=== PATIENT | male | born 1970 | race Caucasian/White ===

== ENCOUNTER 2018-05-03 22:00 | Inpatient (IN) ==
--- NOTE | 2018-05-03 22:40 | ED ---
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 Patient underwent resection of the brain mass. Patient had a new mass noted on MRI back in September 2017. He is currently on chemotherapy and radiation therapy. His last radiation therapy was 12/06/17. Patient also has a history of hypertension, seizure, GERD. The patient presents under Jose act by PD. According to the Jose act the patient had wrapped a cord around his neck. The patient denies this. He states that he was playing with a elastic cord and never put it around his neck. He states that if he wanted to kill himself he would have already done it. He denies any suicidal or homicidal ideation. The patient does complain of intermittent headache as well as problems concentrating and thinking. He denies any fever chills. No chest pain or shortness of breath. No nausea or vomiting. No abdominal pain or urine symptoms. Patient denies alcohol tobacco. No drugs. Past medical history: Astrocytoma, hypertension, seizure disorder, GERD Surgical history: Craniotomy with excision of brain mass Social history: Denies tobacco. Denies alcohol. Denies drugs. Related Data Home Medications Medication Instructions Recorded Confirmed dexamethasone 4 mg PO BID 05/03/18 05/03/18 divalproex [Depakote] 1,000 mg PO DAILY 05/03/18 05/03/18 divalproex [Depakote] 500 mg PO HS 05/03/18 05/03/18 omeprazole 40 mg PO DAILY 05/03/18 05/03/18 phenytoin sodium extended 200 mg PO HS 05/03/18 05/03/18 [Dilantin] phenytoin sodium extended 400 mg PO DAILY 05/03/18 05/03/18 [Dilantin] sulfamethoxazole-trimethoprim 80 PO DAILY 05/03/18 [Bactrim] Allergies Allergy/AdvReac Type Severity Reaction Status Date / Time No Known Allergies Allergy Uncoded 10/23/16 09:19 Review of Systems ROS: all other systems reviewed are negative PMFSH History History Provided By: Patient Social History Social History Recent Travel in [place] within the Last 8 Weeks: No Recent Out of Country Travel within the Last 8 Weeks: No Exam Narrative Exam Narrative: GENERAL: Well-nourished, well-developed patient. SKIN: Warm and dry. HEAD: Normocephalic and atraumatic. Evidence of right craniotomy. EYES: No scleral icterus. No injection or drainage. ENT: No nasal drainage noted. Mucous membranes pink. Airway patent. NECK: Supple, trachea midline. Moves head freely without obvious discomfort. CARDIOVASCULAR: Regular rate and rhythm without murmurs, gallops, or rubs. RESPIRATORY: Breath sounds equal bilaterally. No accessory muscle use. GASTROINTESTINAL: Abdomen soft, non-tender, nondistended. EXTREMITIES: No cyanosis or edema. BACK: Nontender without obvious deformity. No CVA tenderness. NEURO: Patient is alert and oriented. no sensorimotor deficits. Nonfocal. Normal speech. Patient's speech is slow but intact. He does appear to have problems concentrating at times. PSYCH: No delusions. No auditory or visual hallucinations. Course Initial Documented Vital Signs Temperature 98.2 F 05/03/18 22:10 Respiratory Rate 16 05/03/18 22:10 Blood Pressure 124/93 H 05/03/18 22:10 Pulse Oximetry 98 05/03/18 22:10 Last Documented Vital Signs Temperature 98.2 F 05/03/18 22:10 Respiratory Rate 16 05/03/18 22:10 Blood Pressure 124/93 H 05/03/18 22:10 Pulse Oximetry 98 05/03/18 22:10 Medical Decision Making MDM Narrative Medical decision making narrative: We will perform routine laboratory tests for medical clearance as well as CT scan of the brain. Patient was recently seen by medical oncology on 03/28/18. Patient's primary care doctor Maura Bansal MD and medical oncologist is Tiffanie Bhakta MD. The patient has been medically cleared. Medical Screen Exam Complete: Yes Emergency Medical Condition: Yes Differential Diagnosis Differential Diagnosis: MDM: High Differential diagnoses: Schizophrenia, schizoaffective disorder, bipolar, anxiety, depression, adjustment reaction, mood disorder NOS, ODD, depressive disorder NOS, dementia, dementia with agitation, psychosis NOS, substance induced mood disorder, DMDD, Asperger syndrome, infection,electrolyte abnormality, malingering. Mental health screening discussed with the patient. Psychiatric screen ordered. Lab Data Result diagrams: 05/03/18 22:26 05/03/18 22:26 Lab Results 05/03/18 05/03/18 Range/Units 22:26 22:26 WBC 5.2 (4.0-11.0) th/mm3 RBC 4.72 (4.50-5.90) mil/mm3 Hgb 15.2 (13.0-17.0) gm/dL Hct 43.3 (39.0-51.0) % MCV 91.6 (80.0-100.0) fL MCH 32.1 (27.0-34.0) pg MCHC 35.0 (32.0-36.0) % RDW 12.6 (11.6-17.2) % Plt Count 236 (150-450) th/mm3 MPV 6.7 L (7.0-11.0) fL Neut % (Auto) 50.3 (16.0-70.0) % Lymph % (Auto) 34.8 (9.0-44.0) % Noble % (Auto) 12.2 H (0.0-8.0) % Eos % (Auto) 2.0 (0.0-4.0) % Baso % (Auto) 0.7 (0.0-2.0) % Neut # (Auto) 2.6 (1.8-7.7) th/mm3 Lymph # (Auto) 1.8 (1.0-4.8) th/mm3 Noble # (Auto) 0.6 (0.0-0.9) th/mm3 Eos # (Auto) 0.1 (0.0-0.4) th/mm3 Baso # (Auto) 0.0 (0.0-0.2) th/mm3 WBC Differential . Differential Comment Auto diff final Sodium 144 (136-145) meq/L Potassium 3.8 (3.5-5.1) meq/L Chloride 110 H (98-107) meq/L Carbon Dioxide 25.9 (21.0-32.0) meq/L Anion Gap 8 (5-15) meq/L BUN 8 (7-18) mg/dL Creatinine 0.81 (0.60-1.30) mg/dL Estimated GFR Greater than 89 (>89) mL/min Random Glucose 95 (74-106) mg/dL Calcium 8.5 (8.5-10.1) mg/dL Total Bilirubin 0.2 (0.2-1.0) mg/dL AST 13 L (15-37) U/L ALT 30 (12-78) U/L Alkaline Phosphatase 51 (45-117) U/L Total Protein 7.1 (6.4-8.2) g/dL Albumin 3.8 (3.4-5.0) g/dL TSH 2.600 (0.358-3.740) uIU/mL Phenytoin 11.7 (10.0-20.0) mcg/mL Valproic Acid 73 (50-100) mcg/mL Serum Alcohol Less than 3 (0-5) mg/dL Imaging Data Radiologist's impression: Head CT 05/03/18 22:33 CONCLUSION: Low density seen throughout the right temporal lobe and extending to the right parietal lobe. The patient is status post right temporal craniotomy. Significant mass effect or hemorrhage is not seen. This area was better evaluated on a prior recent MRI examination. . Discharge Plan Discharge Disposition Patient Disposition: 30 Still Patient Discharge Condition Condition: Stable Physicians Team ED Provider: Joe Root ED Midlevel Provider: Martinze Dunham Primary Care Provider: Maura Bansal Rxs /Orders / Referrals /Forms Prescriptions: No Action divalproex [Depakote] 500 mg Tablet,Delayed Release (Dr/Ec) 500 mg PO HS RF: 0 divalproex [Depakote] 500 mg Tablet,Delayed Release (Dr/Ec) 1,000 mg PO DAILY RF: 0 dexamethasone 4 mg Tablet 4 mg PO BID RF: 0 phenytoin sodium extended [Dilantin] 30 mg Capsule 200 mg PO HS RF: 0 phenytoin sodium extended [Dilantin] 30 mg Capsule 400 mg PO DAILY RF: 0 sulfamethoxazole-trimethoprim [Bactrim] 400-80 mg Tablet 80 PO DAILY RF: 0 omeprazole 40 mg Capsule,Delayed Release(Dr/Ec) 40 mg PO DAILY RF: 0 Status ED Status: Medically Cleared
--- NOTE | 2018-05-03 22:55 | CT ---
EXAM DATE: 05/03/2018 10:37 PM EDT AGE/SEX: 47 years / Male INDICATIONS: Attempted hanging. CLINICAL DATA: This is the patient's initial encounter. Patient reports that signs and symptoms have been present for 1 day and indicates a pain score of 0/10. MEDICAL/SURGICAL HISTORY: . prior brain tumor Craniotomy. RADIATION DOSE: 56.35 CTDI (mGy) COMPARISON: POI, MR BRAIN W AND W/O CONTRAST, 04/21/2018. . TECHNIQUE: CT of the head without contrast. Using automated exposure control and adjustment of the mA and/or kV according to patient size, radiation dose was kept as low as reasonably achievable to ob tain optimal diagnostic quality images. DICOM format image data is available electronically for revi ew and comparison. FINDINGS: Cerebrum: There is to be low density seen throughout the right temporal lobe and extending into the right parietal lobe. The patient is status post craniotomy in the right temporal region. The low-dens ity in the right parietal lobe primarily involves the white matter is likely related to edema. The ve ntricles are normal for age. No evidence of midline shift, hemorrhage or acute infarction. No extra axial fluid collections are seen. Posterior Fossa: The cerebellum and brainstem are intact. The 4th ventricle is midline. The cerebe llopontine angle is unremarkable. Extracranial: The visualized portion of the orbits is intact. Skull: The patient is status post right temporal craniotomy. CONCLUSION: Low density seen throughout the right temporal lobe and extending to the right parietal lobe. The pat ient is status post right temporal craniotomy. Significant mass effect or hemorrhage is not seen. Thi s area was better evaluated on a prior recent MRI examination. . Electronically signed by: Mir Townsend MD 05/03/2018 10:54 PM EDT
[2018-05-03 23:16] LABS: Baso % (Auto) 0.7 % (0.0-2.0); Eos # (Auto) 0.1 th/mm3 (0.0-0.4); Hematocrit 43.3 % (39.0-51.0); Hemoglobin 15.2 gm/dL (13.0-17.0); Lymph # (Auto) 1.8 th/mm3 (1.0-4.8); Lymph % (Auto) 34.8 % (9.0-44.0); Mean Corpuscular Hemoglobin 32.1 pg (27.0-34.0); Mean Corpuscular Volume 91.6 fL (80.0-100.0); Mean Platelet Volume 6.7 fL (7.0-11.0); Mono # (Auto) 0.6 th/mm3 (0.0-0.9); Mono % (Auto) 12.2 % (0.0-8.0); Neut # (Auto) 2.6 th/mm3 (1.8-7.7); Neut % (Auto) 50.3 % (16.0-70.0); Platelet Count 236 th/mm3 (150-450); Red Blood Count 4.72 mil/mm3 (4.50-5.90); Red Cell Distribution Width 12.6 % (11.6-17.2); White Blood Count 5.2 th/mm3 (4.0-11.0)
[2018-05-03 23:33] LABS: Alanine Aminotransferase 30 U/L (12-78); Albumin 3.8 g/dL (3.4-5.0); Anion Gap 8 meq/L (5-15); Aspartate Aminotransferase 13 U/L (15-37); Blood Urea Nitrogen 8 mg/dL (7-18); Calcium 8.5 mg/dL (8.5-10.1); Carbon Dioxide 25.9 meq/L (21.0-32.0); Chloride 110 meq/L (98-107); Glomerular Filtration Rate Greater Than 89 mL/min (>89); Glucose,Random 95 mg/dL (74-106); Potassium 3.8 meq/L (3.5-5.1); Sodium 144 meq/L (136-145)
[2018-05-03 23:42] LABS: Alkaline Phosphatase 51 U/L (45-117); Phenytoin (Dilantin) 11.7 mcg/mL (10.0-20.0); Total Protein 7.1 g/dL (6.4-8.2); Valproic Acid 73 mcg/mL (50-100)
[2018-05-04 00:52] LABS: Amphetamine Screen,Urine Neg (Neg); Barbiturate Screen,Urine Neg (Neg); Cannabinoid Screen,Urine Neg (Neg); Cocaine Screen,Urine Neg (Neg)
[2018-05-04 01:00] LABS: Opiate Screen,Urine Neg (Neg)
[2018-05-04 02:16] VITALS: RESP 18
--- NOTE | 2018-05-04 10:44 | ED ---
HPI - Psych - General Source: patient, family, police Mode of arrival: ambulatory Limitations: no limitations - History of Present Illness complaint: suicidal ideation Onset (ago): week(s) Duration: constant History of same: No Relieving factors: none Exacerbating factors: medication, other (Major medical issues) Context: new medication(s), significant life stressor Associated symptoms: denies other symptoms Treatments prior to arrival: none If self harm: other (Continues to deny) - General Chief Complaint: Psychiatric Symptoms Stated Complaint: psych eval/VCPD Time Seen by Provider: 05/04/18 10:25 - History of Present Illness HPI Narrative: History of Present Illness HPI Narrative: 47-year-old white, male with a history of high-grade anaplastic astrocytoma, diagnosed in August 2017, followed by resection of the brain mass. Patient had a new mass noted on MRI back in September 2017. Patient also has a history of hypertension, seizure, GERD.No previous psychiatric history, who presents under Jose act by PD. According to the Jose act the patient had wrapped a cord around his neck and had verbalized his desire to . On arrival to the ED he denied this and states that he was playing with a elastic cord and never put it around his neck. He states that if he wanted to kill himself he would have already done it. This was the patient's first contact with [facility] psychiatry. On approach the patient presents as irritable. He maintains minimal eye contact. His affect is blunted. He is guarded with this screen writer. Mood depressed and angry. He continues to deny the events that are described on the Jose act and continues to deny suicidal ideation, intent or plan. He denies that he feels depressed. I have asked him if I could speak with his for collateral information and he gives me verbal permission to do so. Spoke with , Lidia Ramos at [phone] . She reports that approximately 3 weeks ago he began to experience hallucinations and believed that a friend had been in their bedroom with a stranger, he also believed his had made him pull weeds by the side of a road. Other symptoms she reports include irritability, agitation, argumentative, sitting for hours with no activity. Dr. Hewitt his neurologist evaluated the patient and found that he had an elevated Dilantin level and decreased his dose. He also started the patient on Zyprexa 5 mg po q day. Last night she found him with a cord around his neck and and reported that he wanted to end it all and wanted to . Current Phenytoin 11, VPA is 73. (Yolie Tavera) - Related Data Home Medications Medication Instructions Recorded Confirmed dexamethasone 4 mg PO BID 05/03/18 05/03/18 divalproex [Depakote] 1,000 mg PO DAILY 05/03/18 05/03/18 divalproex [Depakote] 500 mg PO HS 05/03/18 05/03/18 omeprazole 40 mg PO DAILY 05/03/18 05/03/18 phenytoin sodium extended 200 mg PO HS 05/03/18 05/03/18 [Dilantin] phenytoin sodium extended 400 mg PO DAILY 05/03/18 05/03/18 [Dilantin] sulfamethoxazole-trimethoprim 80 mg PO DAILY 05/03/18 05/04/18 [Bactrim] Allergies Allergy/AdvReac Type Severity Reaction Status Date / Time No Known Allergies Allergy Uncoded 10/23[facility]16 09[facility]19 [facility] History History Provided By: Patient, Family Member - Medical History Medical History: Medical History (Last Updated 05/04/18 @ 02:19 by Aziza Coto) Brain cancer Seizure cerebral - Social History I have reviewed the patient's Social History: Yes - Tobacco History Smoking Status: Never smoker - Alcohol History How Often Do You Have a Drink Containing Alcohol: Never - Substance Use History Substance History: No History of Abuse - Travel History Recent Travel in the [facility] Within the Last 8 Weeks: No Recent Travel Out of the Country Within the Last 8 Weeks: No - Immunization History Tetanus Immunization: >5 Years Psychiatric History - Psychiatric History Psychiatric Treatment History: Denies Previous Treatment History of Inpatient Treatment: No Firearms in Home: No Physical Exam - General Limitations: no limitations Mental Status Examination Consciousness: Alert Orientation: x4 Motor Activity: Normal gait Speech: Unremarkable Language: Adequate Fund of Knowledge: Adequate Attention and Concentration: Inadequate Memory: Unremarkable Mood: Angry, Sad, Irritable Affect: Blunt Thought Process & Associations: Intact, Logical, Goal directed Thought Content: Appropriate Hallucination Type: None Delusion Type: None Suicidal Ideation: No Suicidal Plan: No Suicidal Intention: No Homicidal Ideation: No Homicidal Plan: No Homicidal Intention: No Insight: Poor Judgment: Poor Initial Documented Vital Signs Temperature 98.2 F 05/03/18 22:10 Respiratory Rate 16 05/03/18 22:10 Blood Pressure 124/93 H 05/03/18 22:10 Pulse Oximetry 98 05/03/18 22:10 Last Documented Vital Signs Temperature 98.2 F 05/03/18 22:10 Pulse Rate 87 05/04/18 02:12 Respiratory Rate 18 05/04/18 02:12 Blood Pressure 121/85 05/04/18 02:12 Pulse Oximetry 98 05/04/18 02:12 MDM - Psych - Diagnosis (1) Adjustment disorder with depressed mood Status: Acute (2) Unspecified psychosis Status: Acute - Lab Data Result diagrams: 05/03/18 22:26 05/03/18 22:26 - [facility] Narrative Medical decision making narrative: 47-year-old male with no previous psychiatric history, no history of substance abuse, no previous history of suicide attempt with newly diagnosed anaplastic astrocytoma, seizures, who is under Jose act after the reports she found him with a bungee around his neck. She also reports that for the past 3 weeks he has been experiencing hallucinations of seeing her friend leaving their bedroom, reporting that she has made him pick weeds from the side of the road, has episodes of increased irritability, as well as having episodes of what appear to be psychomotor retardation with extended period of times of inactivity. The patient denies any suicidal or homicidal ideation at this time but information obtained from the is of concern to this screen writer. He will be admitted for further observation, for safety, for medication adjustment. I will obtain a neurology consult for follow-up during his psychiatric hospitalization. This case is discussed with Dr. Dupont prior to admission. (Yolie aTvera) - Lab Data Lab Results 05/03/18 05/03/18 05/03/18 Range/Units 22:26 22:26 23:58 WBC 5.2 (4.0-11.0) th/mm3 RBC 4.72 (4.50-5.90) mil/mm3 Hgb 15.2 (13.0-17.0) gm/dL Hct 43.3 (39.0-51.0) % MCV 91.6 (80.0-100.0) fL MCH 32.1 (27.0-34.0) pg MCHC 35.0 (32.0-36.0) % RDW 12.6 (11.6-17.2) % Plt Count 236 (150-450) th/mm3 MPV 6.7 L (7.0-11.0) fL Neut % (Auto) 50.3 (16.0-70.0) % Lymph % (Auto) 34.8 (9.0-44.0) % Roane % (Auto) 12.2 H (0.0-8.0) % Eos % (Auto) 2.0 (0.0-4.0) % Baso % (Auto) 0.7 (0.0-2.0) % Neut # (Auto) 2.6 (1.8-7.7) th/mm3 Lymph # (Auto) 1.8 (1.0-4.8) th/mm3 Roane # (Auto) 0.6 (0.0-0.9) th/mm3 Eos # (Auto) 0.1 (0.0-0.4) th/mm3 Baso # (Auto) 0.0 (0.0-0.2) th/mm3 WBC Differential . Differential Comment Auto diff final Sodium 144 (136-145) meq/L Potassium 3.8 (3.5-5.1) meq/L Chloride 110 H (98-107) meq/L Carbon Dioxide 25.9 (21.0-32.0) meq/L Anion Gap 8 (5-15) meq/L BUN 8 (7-18) mg/dL Creatinine 0.81 (0.60-1.30) mg/dL Estimated GFR Greater than 89 (>89) mL/min Random Glucose 95 (74-106) mg/dL Calcium 8.5 (8.5-10.1) mg/dL Total Bilirubin 0.2 (0.2-1.0) mg/dL AST 13 L (15-37) U/L ALT 30 (12-78) U/L Alkaline Phosphatase 51 (45-117) U/L Total Protein 7.1 (6.4-8.2) g/dL Albumin 3.8 (3.4-5.0) g/dL TSH 2.600 (0.358-3.740) uIU/mL Urine Opiates Screen Neg (Neg) Ur Barbiturates Screen Neg (Neg) Phenytoin 11.7 (10.0-20.0) mcg/mL Valproic Acid 73 (50-100) mcg/mL Ur Amphetamines Screen Neg (Neg) U Benzodiazepines Scrn Neg (Neg) Urine Cocaine Screen Neg (Neg) U Cannabinoids Screen Neg (Neg) Serum Alcohol Less than 3 (0-5) mg/dL
[2018-05-04] MEDS ORDERED: Aluminum/Magnesium/Simethacone Susp 30 ML UDC PO PRN (11:05)
[2018-05-04] MEDS: Divalproex 500 MG DR Tablet PO SCH (11:41)
[2018-05-04] MEDS: Sulfamethoxazole/Trimethoprim 400/80 MG Tablet PO SCH (13:29)
[2018-05-04] MEDS: Phenytoin Sodium 100 MG Capsule PO SCH (13:30)
--- NOTE | 2018-05-04 18:41 | MB ---
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 He had surgery at [facility], sees Dr. Hewitt. He is on Dilantin apparently. Has had some mood change since his brain surgery. He has been on chemo, takes a pill, is not very forthcoming with his history. He denies any current headaches; says occasionally he has one. He had an EEG done in September of this year, that was normal. He was seen by Dr. Manjarrez in September of this year, following up with Dr. Hewitt. He had some anxiousness, and was in restraints. He was on Dilantin and Depakote 1000 mg b.i.d. along with Dilantin 400 b.i.d. He had a right temporal lobe tumor. 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 Recent MRI in March showed a new lesion in the right ventricle. He has completed concurrent chemo and radiation with Temodar, last day of radiation 12/06/2017. MRI 02/22/2018 showed decreasing mass effect and surrounding edema with right necrotic temporal lobe lesion. He is getting adjuvant temozolomide treatment. He was reporting his memory was poor last month. Evidently, the tumor was found due to a seizure onset. At that time, he was on Bactrim, Atorvastatin, Klonopin 100 mg t.i.d. p.r.n., Depakote 500 a day, medical marijuana, omeprazole, Zofran, Dilantin possibly 400 b.i.d.; the Depakote may have been 500 b.i.d., hard to tell from the chart. SOCIAL HISTORY: Not a smoker. He says he has 15-18 drinks every day. Denies any drugs. First he said he lives by himself, then he said he lives with his . FAMILY HISTORY: Negative for cancer, seizures or stroke. REVIEW OF SYSTEMS: He denied any hypertension, diabetes, hypercholesterolemia, [place], CABG, cardiac arrhythmia, heart problems, renal, hepatic, pulmonary, thyroid lupus, ulcer, stroke. MEDICATIONS: Recently has been on: 1. Bactrim. 2. Omeprazole. 3. Dexamethasone 4 b.i.d. 4. Depakote 500 at bedtime. 5. Dilantin 200 at bedtime. 6. Depakote 1000 in the day, Dilantin 400 in the day. Overall Dilantin dose was 400 in the morning, 200 at night, and Depakote was 1000 in the morning and 500 at night. PHYSICAL EXAMINATION: VITAL SIGNS: Afebrile, blood pressure 124/93, respirations 16, pulse 87. There were no carotid bruits. HEART: Regular rate and rhythm. I did not detect a murmur. NEUROLOGIC: Pupils are equal. 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 There was no nystagmus. Face was symmetric. Tongue was midline. He had normal strength in upper and lower extremities bilaterally. Gait is steady. DTRs are absent throughout. Toes are downgoing bilaterally. No clonus. He knew the year and the month. He is not aphasic. He appears in a very bad mood, however. LABORATORY DATA: CBC is normal. Urine drug screen is negative. Depakote 73 yesterday, Dilantin 11.7. BMP is normal. LFTs normal. TSH normal. CBC normal. A CT scan of his brain done yesterday, low density in the right temporoparietal region. Review of the film: There is a lot of edema in the parietal lobe and temporal lobe and some encephalomalacia in the temporal lobe. No mass effect is seen, compared to a CT scan 10/03/2017 that was postsurgical, no edema in the parietal lobe at that time. An MRI done in 08/2017 showed what appeared to be a multilobulated tumor, possibly 2 or 3 tumors in the right temporal lobe and possibly a small area in the left medial posterior temporal lobe. IMPRESSION: I think more than likely, the glioma has worsened with his right temporal lobe edema. We can check an EEG and an MRI of the brain. Continue on his seizure medication. I would have Oncology see him. More than likely some of his behavior changes are from the location of the tumor. He has been recently experiencing some hallucinations. He was recently started on Zyprexa 5 mg a day. His Dilantin level was a little low and his medications were dropped by Dr. Hewitt. Certainly if he needs to be on antipsychotics, it will be okay with me neurologically. MD Martha Bradshaw , 05:15 PM , 05:28 PM
[2018-05-04] MEDS ORDERED: Phenytoin Sodium 100 MG Capsule PO SCH (21:00)
[2018-05-04] MEDS ORDERED: Divalproex 500 MG DR Tablet PO SCH (21:00)
[2018-05-05 06:28] VITALS: BP 94/67; PULSE 86; TEMP 98.8; O2SAT 97
[2018-05-05 08:41] LABS: Anion Gap 11 meq/L (5-15); Blood Urea Nitrogen 10 mg/dL (7-18); Calcium 8.7 mg/dL (8.5-10.1); Chloride 107 meq/L (98-107); Glucose,Random 84 mg/dL (74-106); Potassium 3.7 meq/L (3.5-5.1); Sodium 143 meq/L (136-145)
[2018-05-05 08:46] LABS: Chol/HDL Ratio 3.97 Ratio; Cholesterol 195 mg/dL (120-200); Glomerular Filtration Rate Greater Than 89 mL/min (>89); LDL Cholesterol,Calculated 116 mg/dL (0-99); Triglycerides 151 mg/dL (42-150)
[2018-05-05] MEDS: Sulfamethoxazole/Trimethoprim 400/80 MG Tablet PO SCH (09:33)
[2018-05-05] MEDS: Phenytoin Sodium 100 MG Capsule PO SCH (09:34)
[2018-05-05] MEDS: Divalproex 500 MG DR Tablet PO SCH (09:35)
[2018-05-05 09:43] LABS: Hemoglobin A1c 4.7 % (4.3-6.0)
[2018-05-05] MEDS ORDERED: Gadobutrol PF 10 MMOL/10 ML Vial (for RAD) IV.SIG ONE (09:51)
--- NOTE | 2018-05-05 10:38 | MR ---
EXAM DATE: 05/05/2018 7:03 AM EDT AGE/SEX: 47 years / Male INDICATIONS: Mass. CLINICAL DATA: This is the patient's initial encounter. Patient reports that signs and symptoms have been present for 1 day and indicates a pain score of 0/10. MEDICAL/SURGICAL HISTORY: . Carcinoma, brain. . Brain tumor removal surgery. COMPARISON: POI, MR BRAIN W AND W/O CONTRAST, 04/21/2018. . TECHNIQUE: Multiplanar, multisequence examination of the brain was performed without and with 9 ml Ga davist (gadobutrol) contrast as a single exam dose. FINDINGS: The craniocervical junction and midline structures are unremarkable. There continues to be extensive vasogenic edema in the right parietal region adjacent to the trigone of the lateral ventricle with m ass effect but no significant midline shift or signs of herniation. There is slight increase in the a mount of intratumoral hemorrhage adjacent to the atria of the right lateral ventricle.. The large irr egular enhancing necrotic mass involving the right temporal lobe is similar in size to the prior stud y measuring 7.5 x 3.1 cm in the axial dimension. The posterior aspect of the tumor is at the trigone and beginning to extend medially. There is also extension underneath the ventricle to the mesial righ t temporal lobe. The middle cerebral artery is not encased. No new lesions are identified. Posterior fossa structures are unremarkable. CONCLUSION: 1. In comparison with the prior examination the findings are similar with larger chronic mass involv ing the majority of the right temporal lobe with vasogenic edema and mass effect but no significant m idline shift. Electronically signed by: iDxon Kirk MD 05/05/2018 10:36 AM EDT
--- NOTE | 2018-05-05 10:58 | P.DSPSY ---
Psychiatry Discharge Summary Advance Directives: No - Admission Admission Date: May 04, 2018 11:05 Tobacco Use In Past 30 Days: No How Often Do You Have a Drink Containing Alcohol: Never Mental Status Examination Consciousness: Alert Orientation: x4 Motor Activity: Normal gait Speech: Unremarkable Language: Adequate Fund of Knowledge: Adequate Attention and Concentration: Inadequate Memory: Unremarkable Mood: Angry, Sad, Irritable Affect: Blunt Thought Process & Associations: Intact, Logical, Goal directed Thought Content: Appropriate Hallucination Type: None Delusion Type: None Suicidal Ideation: No Suicidal Plan: No Suicidal Intention: No Homicidal Ideation: No Homicidal Plan: No Homicidal Intention: No Insight: Poor Judgment: Poor Discharge/Advance Care Plan - Results Vital Signs: Last Vital Signs Temp 98.8 F 05/05/18 06:27 Pulse 86 05/05/18 06:27 Resp 18 05/05/18 06:27 BP 94/67 L 05/05/18 06:27 Pulse Ox 97 05/05/18 06:27 Lab Results: Abnormal Lab Results 05/05/18 05/05/18 07:52 07:52 Sodium 143 Potassium 3.7 Chloride 107 Carbon Dioxide 25.0 Anion Gap 11 BUN 10 Creatinine 0.74 Estimated GFR Greater than 89 Random Glucose 84 Hemoglobin A1c 4.7 Calcium 8.7 Triglycerides 151 H Cholesterol 195 LDL Cholesterol, Calc 116 H HDL Cholesterol 49.0 Cholesterol/HDL Ratio 3.97 Laboratory Results Hemoglobin A1c 4.7 % (4.3-6.0) 05/05/18 07:52 Triglycerides 151 mg/dL (42-150) H 05/05/18 07:52 Cholesterol 195 mg/dL (120-200) 05/05/18 07:52 LDL Cholesterol, Calc 116 mg/dL (0-99) H 05/05/18 07:52 HDL Cholesterol 49.0 mg/dL (40.0-60.0) 05/05/18 07:52 TSH 2.600 uIU/mL (0.358-3.740) 05/03/18 22:26 Valproic Acid 73 mcg/mL (50-100) 05/03/18 22:26 Imaging: ITS Impressions Head CT 05/03/18 22:33 CONCLUSION: Low density seen throughout the right temporal lobe and extending to the right parietal lobe. The patient is status post right temporal craniotomy. Significant mass effect or hemorrhage is not seen. This area was better evaluated on a prior recent MRI examination. . Head MRI 05/05/18 07:03 CONCLUSION: 1. In comparison with the prior examination the findings are similar with larger chronic mass involving the majority of the right temporal lobe with vasogenic edema and mass effect but no significant midline shift. - Discharge Care Plan Goals to Promote Your Health: * To prevent worsening of your condition and complications * To maintain your health at the optimal level Directions to Meet Your Goals: Take your medications as prescribed Follow your dietary instruction Follow activity as directed Keep your appointments as scheduled Take your immunizations and boosters as scheduled If your symptoms worsen call your PCP, if no PCP go to Urgent Care Center or Emergency Room For 14/02 questions related to your inpatient stay or results of tests pending at discharge, please contact Dr. Dixon Ramirez MD at [phone] Smoking is Dangerous to Your Health. Avoid second hand smoking
--- NOTE | 2018-05-05 11:03 | P.HPPSY ---
Provisional Diagnosis Admission Date: May 04, 2018 11:05 [place] I.: 1. 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 Express and informed consent means consent voluntarily given in writing, by a competent person, after sufficient explanation and disclosure of the subject matter involved to enable the person to make a knowing and willful decision without any element of force, fraud, deceit, duress, or other form of constraint or coercion. This person is 18 years of age or older, is not now known to be incompetent to consent to treatment with a guardian advocate, and does not have a health care surrogate or proxy currently making medical treatment decisions. I have found this person to be one of the following: [] Competent to provide express and informed consent, as defined above, for voluntary admission to this facility and is competent to provide express and informed consent for treatment. He/she has the consistent capacity to make well reasoned, willful, and knowing decisions concerning his or her medical or mental health treatment. The person fully and consistently understands the purpose of the admission for examination/placement and is fully capable of personally exercising all rights assured under [place] [X] Incompetent to provide express and informed consent to voluntary admission, and this is incompetent to provide express and informed consent to treatment. [] Refusing to provide express and informed consent to voluntary admission but is competent to provide express and informed consent for treatment. The person must be discharged or transferred to involuntary status. Form shall be completed within 24 hours of a person's arrival at the receiving facility and filed in the clinical record of each person: 1. Admitted on a voluntary basis 2. Permitted to provide express and informed consent to his/her own treatment 3. Allowed to transfer from involuntary to voluntary status 4. Prior to permitting a person to consent to his or her own treatment after having been previously found incompetent to consent to treatment. History of Present Illness Capacity: Lacks capacity Chief Complaint: Jose Act History of Present Illness: Mr. 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 Reviewing the electronic medical record, I see no previous psychiatric contact within our system, although I do note that the patient was seen in consultation in September of this year by the neuropsychologist, Dr. Pelletier, who gave a diagnosis of major neurocognitive disorder. Patient seen and examined with nurse. Chart reviewed. Case discussed with nursing staff. On my examination today, the patient insists that he did not make a suicide attempt prior to admission. He says that he was merely using elastic bands for exercise and his misinterpreted. "She did not see the whole thing." The patient adamantly denies any suicidal ideation, intent or plan saying that he wants to live for his , his house and his friends. He denies any homicidal ideation, intent or plan. I can elicit no depressive or hypomanic/manic symptoms, except that he does complain of poor sleep although this sounds to be more of a chronic issue. The patient says "I feel really good." He denies any audiovisual hallucinations presently but says that he did experience some visual hallucinations when he first started his antiepileptic medications. These have reportedly resolved. I can elicit no delusional material. His thought process is somewhat circumstantial and his speech somewhat rambling. Remainder of the psychiatric ROS is negative. No acute physical complaints. Patient is requesting discharge from the inpatient psychiatric unit today. Past psychiatric history: The patient denies a history of psychiatric diagnosis. He denies a history of inpatient or outpatient psychiatric treatment. He denies a history of suicide attempts. Family history: Patient denies any family history of serious mental illness or suicide. Chemical dependency history: The patient denies any abuse of drugs or alcohol. Social history: The patient lives with his . He has no children but keeps for pet dogs. He has a grade 11 education. He denies any or legal history. He denies any access to guns or firearms. He endorses some voodoo beliefs noting "everyone has something." He denies any history of abuse or mistreatment. With the patient's permission, I obtained collateral information from his , Gifty Ramos at the number listed in the nurse practitioner's note. Ms. Ramos does not support ongoing inpatient psychiatric hospitalization for the patient. Although she does believe the patient was trying to choke himself, she believes he was just having a transient outburst. She believes that the inpatient unit would be counter-therapeutic for the patient and would likely only serve to make him more agitated and distressed. She maintains that she can monitor the patient continuously at home and agrees to contact friends and family prior to patient's discharge to make arrangements for 24/7 supervision of the patient at home. She notes that the patient was recently been started on Zyprexa by his outpatient provider and this has seemed to help somewhat with patient's behaviors. She requests a dose adjustment prior to discharge home. She notes that the home environment is secure, and that all potential means of harm to self/others (including guns, medications, ropes, etc.) have been secured in a safe to which the patient reportedly has no access. I have strongly recommended to Ms. Ramos that the patient be observed on the inpatient unit at least through the weekend. I have counseled her that the patient is likely chronically unpredictable with respect to suicide/violence risk as a consequence of his brain lesion and have suggested that provisions might be made from the inpatient unit for placement in a facility where his behavior might be monitored, but the patient's opposes this and wishes to have him home today. I spent approximately 16 minutes in telephone consultation with the patient's . - Inpatient Certification I certify that the inpatient services were ordered in accordance with Medicare regulations governing the order. This includes certification that hospital inpatient services are reasonable and necessary and in the case of services not specified as inpatient-only under 42 CFR 419.22(n), that they are appropriately provided as inpatient services in accordance to with the 2-midnight benchmark under 43 CFR 412.3(e) I certify that inpatient psychiatric hospital services are medically necessary. Evaluation and treatment and/or diagnostic testing are expected to improve the patient's condition. The patient needs on a daily basis, active treatment furnished directly by or requiring the supervision of inpatient psychiatric facility personnel. Estimated Total Length of Stay (Days): 8 Plans for Post Hospital Care: Home Review of Systems All other systems reviewed negative except as stated in HPI (Limitation: Poor historian) PMF - History History Provided By: Patient, Family Member - Medical History Medical History: Medical History (Last Updated 05/04/18 @ 02:19 by Aziza Coto) Brain cancer Seizure cerebral - Tobacco History Second Hand Smoke Exposure: No Tobacco Use In Past 30 Days: No Smoking Status: Never smoker Tobacco Type: Cigarettes - Alcohol History How Often Do You Have a Drink Containing Alcohol: Never - Substance Use History Substance History: No History of Abuse - Travel History Recent Travel in the [place] Within the Last 8 Weeks: No Recent Travel Out of the Country Within the Last 8 Weeks: No - Immunization History Tetanus Immunization: >5 Years Quality Measures - Patient Strengths Patient's strengths (minimum of 2): Supportive . Verbally fluent. Medications and Allergies Active Medications: Active Medications Al Hydrox/Mg Hydrox/Simethicone (Mag-Al Plus Susp Liq) 30 ml PO Q6H PRN PRN Reason: DYSPEPSIA Al Hydroxide/Mg Hydroxide (Milk Of Magnesia Liq) 30 ml PO Q12H PRN PRN Reason: Mild Constipation Dexamethasone (Decadron) 4 mg PO BID [facility] Last Admin: 05/05/18 09:35 Dose: 4 mg Divalproex Sodium (Depakote Dr) 500 mg PO [facility] Last Admin: 05/04/18 20:48 Dose: 500 mg Divalproex Sodium (Depakote Dr) 1,000 mg PO DAILY [facility] Last Admin: 05/05/18 09:35 Dose: 1,000 mg Phenytoin Sodium (Dilantin) 400 mg PO DAILY [facility] Last Admin: 05/05/18 09:34 Dose: 400 mg Phenytoin Sodium (Dilantin) 200 mg PO [facility] Last Admin: 05/04/18 20:49 Dose: 200 mg Sennosides (Senokot) 17.2 mg PO Q12H PRN PRN Reason: Moderate Constipation Trimethoprim/Sulfamethoxazole (Bactrim) 1 tab PO DAILY [facility] Last Admin: 05/05/18 09:33 Dose: 1 tab Allergies Allergy/AdvReac Type Severity Reaction Status Date / Time No Known Allergies Allergy Uncoded 10/23/16 09:19 Home Medications Medication Instructions Recorded Confirmed Type dexamethasone 4 mg PO BID 05/03/18 05/03/18 History divalproex [Depakote] 1,000 mg PO DAILY 05/03/18 05/03/18 History divalproex [Depakote] 500 mg PO HS 05/03/18 05/03/18 History omeprazole 40 mg PO DAILY 05/03/18 05/03/18 History phenytoin sodium extended 200 mg PO HS 05/03/18 05/03/18 History [Dilantin] phenytoin sodium extended 400 mg PO DAILY 05/03/18 05/03/18 History [Dilantin] sulfamethoxazole-trimethoprim 80 mg PO DAILY 05/03/18 05/04/18 History [Bactrim] Results - Labs CBC & Chem 7: 05/03/18 22:26 05/05/18 07:52 Labs: Laboratory Results - last 24 hr 05/05/18 05/05/18 07:52 07:52 Sodium 143 Potassium 3.7 Chloride 107 Carbon Dioxide 25.0 Anion Gap 11 BUN 10 Creatinine 0.74 Estimated GFR Greater than 89 Random Glucose 84 Hemoglobin A1c 4.7 Calcium 8.7 Triglycerides 151 H Cholesterol 195 LDL Cholesterol, Calc 116 H HDL Cholesterol 49.0 Cholesterol/HDL Ratio 3.[address] Labs [address]. [address] Head CT 05/03/18 22:33 CONCLUSION: Low density seen throughout the right temporal lobe and extending to the right parietal lobe. The patient is status post right temporal craniotomy. Significant mass effect or hemorrhage is not seen. This area was better evaluated on a prior recent MRI examination. . Head MRI 05/05/18 07:03 CONCLUSION: 1. In comparison with the prior examination the findings are similar with larger chronic mass involving the majority of the right temporal lobe with vasogenic edema and mass effect but no significant midline shift. - Imaging Impressions Head MRI 05/05/18 07:03 CONCLUSION: 1. In comparison with the prior examination the findings are similar with larger chronic mass involving the majority of the right temporal lobe with vasogenic edema and mass effect but no significant midline shift. Exam Vital signs: Vital Signs 05/05/18 06:27 Temperature 98.8 F Pulse Rate 86 Respiratory Rate 18 Blood Pressure 94/67 L Pulse Oximetry 97 Intake & Output 05/04/18 05/05/18 05/05/18 18:59 06:59 18:59 Weight 89.43 kg Other: Weight On Admission 89.43 kg Narrative: Physical examination completed by ED provider. On my examination today, the patient appears to be in no acute physical distress. No motor abnormalities noted. No ictal activity noted. Labs and vital signs reviewed. Mental Status Examination Appearance: Appropriate Consciousness: Alert Orientation: x4 Motor Activity: Normal gait Speech: Unremarkable Language: Adequate Fund of Knowledge: Adequate Attention and Concentration: Easily distracted Memory: Impaired Mood: Other (Calm) Affect: Blunt Thought Process & Associations: Circumstantial Thought Content: Appropriate Hallucination Type: None Delusion Type: None Suicidal Ideation: No Suicidal Plan: No Suicidal Intention: No Homicidal Ideation: No Homicidal Plan: No Homicidal Intention: No Insight: Poor Judgment: Poor Assessment and Plan - Assessment (1) Major neurocognitive disorder, due to another medical condition, with behavioral disturbance, moderate Code(s): F02.81 - Dementia in other diseases classified elsewhere with behavioral disturbance Status: Acute (2) Brain neoplasm Code(s): D49.6 - Neoplasm of unspecified behavior of brain Status: Acute - Plan Plan: 47-year-old male with psychiatric history as detailed above who presents under a Jose act after alleged attempted strangulation. Patient denies that he was trying to strangle himself and denies any ongoing suicidal ideation at this time. I suspect that the patient was experiencing behavioral disturbance in the setting of major neurocognitive disorder related to his brain neoplasm. Collateral from patient's indicates that presenting behavior likely was an attempt at self-injury, but patient's still desires to have the patient home today, feeling that ongoing inpatient psychiatric hospitalization would be counter-therapeutic and traumatizing for the patient. She will reportedly make provision for continuous monitoring of the patient by friends and family. She is willing to accept a home health referral, and I have ordered this on discharge. Given that there is an available less restrictive alternative in the form of discharge home with close supervision by friends and family, the patient does not meet criteria involuntary psychiatric hospitalization. However , I have counseled the patient's that I believe a home-going plan is unwise and that the patient should be monitored on the inpatient psychiatric unit through the weekend with consideration of possible placement. persists in desiring a homegoing plan today for the patient, as does the patient himself. Having no basis to retain the patient involuntarily, I will discharge him AGAINST MEDICAL ADVICE with home health referral. Patient is to follow up psychiatrically as arranged by counselor. He is also to follow up with primary care, neurology and oncology. Patient is to return to psychiatric emergency room for any concerning symptoms as part of a general safety plan. I have provided a prescription for a modest dose increase of the patient's Zyprexa to 7.5 mg at bedtime, quantity sufficient for 15 days with one refill. This note serves also as my discharge summary. Justification for Continued Inpatient Stay: N/A.
--- NOTE | 2018-05-05 11:03 | P.DCO ---
- Diagnosis (1) Major neurocognitive disorder, due to another medical condition, with behavioral disturbance, moderate Status: Acute (2) Brain neoplasm Status: Acute - Home Health Nursing Order: Signs/symptoms of disease process, Nursing assessment with vital signs Instructions: To include home psychiatric nursing. - Compound Worker Order: To evaluate: Living conditions/environment, Support services Order: To provide: Long range planning, Community services - Case Management Consult No - Certification I have seen patient Wan Gomez on 05/05/18. My clinical findings support the need for the requested home health care services because: Impaired cognition/judgement I certify that my clinical findings support that this patient is homebound because: Impaired cognitive ability/safety
--- NOTE | 2018-05-05 18:25 | MG ---
cc: Hannah Cho MD EEG NUMBER: [id number] REFERRING PHYSICIAN: Dixon Degroot MD in room 2706. Awake, drowsy, asleep with photic only. EEG in September of this year, minimal stage 2 sleep, no epileptic activity. MRI: Large chronic mass-like lesion involving the majority of the right temporal lobe with vasogenic edema, mass effect, but no shift. A 47-year-old man, Jose Acted, had wrapped a cord around his neck and verbalize a desire to . History of brain cancer, seizures, on Decadron Depakote and Dilantin. The patient has an overall background of 8 Hz, 20-40 microvolts. EKG is sinus. Patient is asleep, snoring during part of this recording, slowing down to 2 Hz background. No appreciable slowing over the right hemisphere compared to the left. No appreciable epileptiform features. Photic stimulation did elicit a driving response. IMPRESSION: Variability of the EEG from normal background to slowing may be due to the patient's sleep state with normal wakefulness. However, no epileptic activity is seen. Hannah Cho MD DF/ct , 05:18 PM , 05:24 PM
--- NOTE | 2018-05-05 19:26 | ECG ---
Date Performed: 05/05/2018 Time Performed: 11:02:45 PTAGE: 47 years EKG: Sinus rhythm NORMAL ECG PREVIOUS TRACING : 10/03/2017 18.10 Since the previous tracing, no significant change noted DOCTOR: Maynor Watkins Interpretating Date/Time 05/05/2018 19:26:21
== END 2018-05-05 14:05 | disposition left against medical advice (07) ==
LOC: NEDAMB 22:00 → NEDA 05-04 11:05 → H250 05-04 12:05 → H270 05-04 18:03
PROVIDERS: ADMIT Psychiatry & Neurology Psychiatry; ATTEND Psychiatry & Neurology Psychiatry